=== PATIENT | female | born 1960 | race Caucasian/White ===

== ENCOUNTER 2022-05-07 19:37 | Observation (INO) ==
[2022-05-07] MEDS ORDERED: Aspirin 81 MG TAB.CHEW PO ONE (20:08)
[2022-05-07] MEDS ORDERED: 0.9 % Sodium Chloride 500 ML IVC ONE (20:09)
[2022-05-07 20:23] LABS: Basophils # 0.1 K/mcL (0.0-0.2); Basophils % 0.8 %; Eosinophils # 0.4 K/mcL (0.0-0.6); Eosinophils % 6.1 %; Hemoglobin 14.3 g/dL (11.5-15.4); Immature Granulocytes % 0.4 % (0-4); Lymphocytes # 1.8 K/mcL (0.6-4.6); Lymphocytes % 25.1 %; Mean Corpuscular HGB Conc 31.8 g/dL (31.6-35.5); Mean Corpuscular Hemoglobin 29.5 pg (28.0-33.3); Mean Corpuscular Volume 92.8 fL (83.0-100.0); Mean Platelet Volume 12.3 fL (9.4-12.4); Monocytes # 0.5 K/mcL (0.0-1.3); Monocytes % 7.3 %; Neutrophils # 4.4 K/mcL (1.6-8.9); Platelet Count 188 K/mcL (140-400); Red Blood Count 4.85 M/mcL (3.82-4.97); Segmented Neutrophils % 60.3 %; White Blood Count 7.3 K/mcL (4.3-11.1)
[2022-05-07 20:30] LABS: Prothrombin Time 11.1 Seconds (9.4-12.1)
[2022-05-07 20:33] LABS: Activated Partial Thrombo Time 32.3 Seconds (26.0-36.0)
[2022-05-07] MEDS ORDERED: Iopamidol - 370 500 ML MLS IVP ONE (20:41)
[2022-05-07 20:45] LABS: Alanine Aminotransferase 111 Units/L (7-52); Albumin 3.8 g/dL (3.5-5.7); Albumin/Globulin Ratio 1.5 (1.1-2.2); Alkaline Phosphatase 108 Units/L (34-104); Aspartate Amino Transferase 178 Units/L (13-39); BUN/Creatinine Ratio 32 (6-26); Bilirubin,Direct 0.1 mg/dL (0.0-0.2); Bilirubin,Indirect 0.2 mg/dL (0.0-1.0); Bilirubin,Total 0.3 mg/dL (0.3-1.0); Blood Urea Nitrogen 30 mg/dL (8-23); Carbon Dioxide 24 mEq/L (23-29); Chloride 107 mEq/L (98-107); Globulin 2.5 g/dL (2.4-3.5); Glucose 182 mg/dL (70-105); Lipase 23 Units/L (11-82); Osmolality,Calculated 301 (280-300); Potassium 4.2 mEq/L (3.5-5.1); Sodium 140 mEq/L (136-145); Total Protein 6.3 g/dL (6.4-8.9); Troponin I < 0.03 ng/mL (< 0.04)
[2022-05-07 22:41] LABS: Hepatitis B Surface Antigen Nonreactive (Nonreactive)
[2022-05-07 23:11] LABS: Hepatitis C Virus Antibody Nonreactive (Nonreactive)
[2022-05-07 23:13] LABS: Hepatitis A Antibody IgM Nonreactive (Nonreactive); Hepatitis B Core IgM Nonreactive (Nonreactive)
[2022-05-08] MEDS ORDERED: Ondansetron 4 MG/2 ML VIAL IVP PRN (00:47)
[2022-05-08] MEDS ORDERED: Naloxone 0.4 MG/ML INJ IVP PRN ×2 (00:47→01:06)
[2022-05-08 01:35] LABS: Influenza A PCR Negative (Negative); Influenza B PCR Negative (Negative); Resp. Syncytial Virus PCR Negative (Negative)
[2022-05-08 01:39] VITALS: O2SAT 95
[2022-05-08 01:40] LABS: SARS-CoV-2 by PCR (In House) Negative (Negative)
[2022-05-08 01:45] LABS: Basophils % 0.6 %; Eosinophils # 0.2 K/mcL (0.0-0.6); Eosinophils % 2.9 %; Hematocrit 40.8 % (35.3-44.9); Hemoglobin 12.9 g/dL (11.5-15.4); Immature Granulocytes % 0.3 % (0-4); Lymphocytes % 28.7 %; Mean Corpuscular HGB Conc 31.6 g/dL (31.6-35.5); Mean Corpuscular Hemoglobin 29.3 pg (28.0-33.3); Mean Corpuscular Volume 92.5 fL (83.0-100.0); Mean Platelet Volume 11.7 fL (9.4-12.4); Monocytes # 0.6 K/mcL (0.0-1.3); Monocytes % 8.8 %; Platelet Count 170 K/mcL (140-400); Red Blood Count 4.41 M/mcL (3.82-4.97); Red Cell Distribution Width 14.9 % (11.5-14.5); Segmented Neutrophils % 58.7 %; White Blood Count 6.8 K/mcL (4.3-11.1)
[2022-05-08 02:06] LABS: Acetaminophen < 10 mcg/mL (10-20); Alanine Aminotransferase 89 Units/L (7-52); Albumin 3.5 g/dL (3.5-5.7); Albumin/Globulin Ratio 1.6 (1.1-2.2); Alkaline Phosphatase 91 Units/L (34-104); Aspartate Amino Transferase 104 Units/L (13-39); BUN/Creatinine Ratio 39 (6-26); Bilirubin,Total 0.4 mg/dL (0.3-1.0); Blood Urea Nitrogen 26 mg/dL (8-23); Calcium 8.6 mg/dL (8.6-10.3); Carbon Dioxide 26 mEq/L (23-29); Chloride 110 mEq/L (98-107); Globulin 2.2 g/dL (2.4-3.5); Glucose 87 mg/dL (70-105); Magnesium 2.3 mg/dL (1.6-2.6); Osmolality,Calculated 294 (280-300); Potassium 4.2 mEq/L (3.5-5.1); Sodium 140 mEq/L (136-145); Total Protein 5.7 g/dL (6.4-8.9); Triglycerides 51 mg/dL (< 150)
[2022-05-08] MEDS ORDERED: Pantoprazole 40 MG VIAL IVP ONE (02:47)
[2022-05-08] MEDS ORDERED: Iopamidol - 370 500 ML MLS IVP ONE (02:48)
[2022-05-08 03:07] LABS: Ferritin 55 ng/mL (10-120); Troponin I 0.21 ng/mL (< 0.04)
[2022-05-08] MEDS ORDERED: *HR* Enoxaparin 40 MG/0.4 ML SYRINGE SQ SCH (06:00)
[2022-05-08 10:51] VITALS: BP 110/72; PULSE 78; TEMP 97.5
[2022-05-09] MEDS ORDERED: lisinopriL 5 MG TABLET PO SCH (09:00)
[2022-05-09] MEDS ORDERED: Dextroamphetamine/Amphetamine [Adderall 20 Mg Tablet] PO SCH (09:00)
[2022-05-09] MEDS ORDERED: Aspirin Enteric Coated 81 MG Tablet PO SCH (09:00)
== END 2022-05-08 14:40 | disposition home or self-care (01) ==
LOC: 3BNU 19:37 → EMEROOARM 19:37 → SUATTDRO 05-08 00:33 → 3BNU 05-08 01:06
PROVIDERS: ADMIT Internal Medicine; ATTEND Pharmacist